=== PATIENT | male | born 1950 | race Caucasian/White ===

== ENCOUNTER 2019-07-29 22:37 | Inpatient (IN) | payer OTHER, BC ==
[~2019-07-29] VITALS: Ht 172.7 cm; Wt 80.0 kg
[2019-07-30 00:22] LABS: INR 1.7; PROTIME 17.9 Seconds (9.3-11.4)
[2019-07-30 00:39] LABS: TSH 2.174 uIU/mL (0.358-3.740)
[2019-07-30] MEDS ORDERED: PROTONIX40 M4 PO (05:00)
[2019-07-30] MEDS ORDERED: CLONAZEPAM 0.50.5 M1 PO (05:01)
[2019-07-30] MEDS ORDERED: COUMADIN 5 MG TA5 M1 PO (05:02)
[2019-07-30] MEDS ORDERED: COUMADIN 2 MG TA2 M1 PO (05:02)
[2019-07-30] MEDS ORDERED: MIDODRINE HCL 55 M1 PO (05:03)
[2019-07-30] MEDS ORDERED: LATUDA120 MG PO (05:04)
[2019-07-30] MEDS ORDERED: DIVALPROEX SOD500 M1 PO (05:04)
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
[2019-07-30 11:17] VITALS: BP 157/91
--- NOTE | 2019-07-30 11:42 | NUR ---
0649 REPORT RECEIVED FROM OVERNIGHT SHIFT, PATIENT A NEW ADMIT HERE FOR IMPULSE CONTROL. PATIENT HAS NOT BEEN TAKING MEDICATION LIKE HE IS SUPPOSE TO. PATIENT HAS A HX OF SI/HI 3 YEARS AGO, PATIENT LIVES WITH 96 YEAR OLD MOTHER AT HOME. PATIENT ATE BREAKFAST TOOK MEDICATION WITHOUT INCIDENCE COOPERATIVE, CALM DENIES SI/HI AT PRESENT. WILL CONTINUE TO MONITOR PATIENT FOR SAFETY AND BEHAVIORS.
--- NOTE | 2019-07-30 13:12 | EKG ---
[address] [place] [address] ELECTROCARDIOGRAM REPORT Name: DEVIN STINSON Room #: 520A-A ADM IN M.R.#: [id number] Admission: 07/29/19 Attend Phys: Lico Quintanilla DO Discharge: Date of : 52 Report #: [id number] THIS REPORT FOR: //name// [facility] Test Date: 2019-07-30 Test Time: 10:04:53 Pat Name: DEVIN STINSON Department: Room: 520A A Gender: M [employer]ombstone Erector: Ayaan BOOKER : 1950 Requested By: Lico Quintanilla Order Number: [id number] MD: Hiro Yoon Measurements Intervals [place] Rate: 92 P: 61 IL: 125 QRS: 58 QRSD: 100 T: 54 QT: 353 QTc: 437 Interpretive Statements Sinus rhythm Ventricular premature complex Minimal ST depression, inferior leads Compared to ECG 09/18/2001 16:36:34 Ventricular premature complex(es) now present ST (T wave) deviation now present Electronically Signed On 07-30-2019 13:11:57 PHOTOGRAPHER LITHOGRAPHIC by Hiro Yoon [email or web address] <ELECTRONICALLY SIGNED> By: Hiro Yoon MD, [facility] 07/30/19 1311 1004 1004 Hiro Yoon MD, [facility] /EPI
[2019-07-30 15:07] VITALS: BP 152/91
[2019-07-30 19:53] VITALS: BP 135/67
--- NOTE | 2019-07-31 01:48 | NUR ---
[facility] HE DOES HAVE A ROOM MATE. PATIENT IS A/O X 1-2. PATIENT PLEASANT AND COOPERATIVE BUT IS IMPULSIVE WHEN HE GETS A THOUGHT. PATIENT HAS BEEN IN ROOM AND/OR BED ALL NIGHT. DENIES PAIN. PATIENT AMBULATES ON HIS OWN AND IS STEADY ON HIS FEET. BED IN LOW POSITON AND BED ALARM ON. WILL CONTINUE TO MONITOR.
[2019-07-31 06:23] LABS: PROTIME 28.9 Seconds (9.3-11.4)
[2019-07-31 06:47] LABS: INR 2.8
[2019-07-31 08:00] VITALS: BP 129/64
--- NOTE | 2019-07-31 08:00 | NUR ---
PT UP AD EDIL TODAY. PT ATE BREAKFAST AND BACK TO BED. PT DENIES ANY PAIN. PT HAS TREMORS TO RT HAND. PT WANTING TO GET CLEANED UP AFTER BREAKFAST. PT WEAR BRIEF FOR STRESS INCON. PT DENIES ANY PAIN. GOAL TO SHAVE AND CLIP FINGER NAILS TODAY. WANTING TO GO HOME TOMMORROW.
[2019-07-31 08:58] VITALS: BP 139/64
[2019-07-31 12:35] VITALS: BP 119/76
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
[2019-07-31 19:17] VITALS: BP 107/59
--- NOTE | 2019-08-01 03:44 | NUR ---
TOOK OVER CARE OF THIS PATIENT AT 1920. PATIENT ALERT AND OIENTED X4. REMAINED IN BED DURING SHIFT. TOOK MEDS WITH NO PROBLEM. NO SIGNS OF AGGRESSION. SLEPT MOST OF NIGHT. NO PAIN NOTED.
[2019-08-01 06:39] LABS: INR 3.3; PROTIME 33.7 Seconds (9.3-11.4)
[2019-08-01 08:40] VITALS: BP 100/64
--- NOTE | 2019-08-01 12:49 | NUR ---
ASSUMED CARE AT 0700 THIS MORNING. PT. IS SITTING IN A CHAIR IN THE DINING ROOM. HE HAS BEEN DEPRESSED LOOKING, BUT HAS BEEN PLEASANT AND COOPERATIVE WITH THIS SUPERVISORY FORESTER. HE TOOK HIS MEDICATIONS WITHOUT PROBLEMS NOTED. ANSWERED ALL QUESTIONS APPROPRIATELY.
[2019-08-01 12:53] VITALS: BP 100/64
[2019-08-01 19:45] VITALS: BP 137/82
--- NOTE | 2019-08-02 03:54 | NUR ---
ASSUMED CARE OF PATIENT ON 08/01/19 AT APPROXIMATELY 1915. UPON ONE TO ONE WITH PATIENT HE WAS IN BED WITH EYES CLOSED THAT OPENED SPONTANEOUSLY TO THIS NURSES VOICE. HE APPEARS WITH A EUTHYMIC AFFECT, TANGENTIAL THOUGHTS, BUT WAS COOPERATIVE WITH THIS NURSE. HE DID TALK IN A NON SENSICAL MANNER THROUGHOUT THE ASSESSMENT. HE WAS ABLE TO DENY SI HI AND HALLUCINATIONS. HE DENIED MEDICAL CONCERNS WITH NO S/S OF DISTRESS. NURSING WILL MAINTAIN ALL PRECAUTIONS FOR SAFETY AT ALL TIMES.
[2019-08-02 06:10] LABS: INR 2.2; PROTIME 22.9 Seconds (9.3-11.4)
[2019-08-02 10:26] VITALS: BP 127/62
--- NOTE | 2019-08-02 15:15 | NUR ---
Rebecca called and spoke with pt's mother and she stated that the pt had called her already today and reported that he would be home on Monday. 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 Dr carpio later reported that this pt is going to need transportation home and that [facility] might be able to help with that too. D/C is set for 11:30 am. This was reported to nursing.
[2019-08-02 19:58] VITALS: BP 113/62
--- NOTE | 2019-08-03 03:49 | NUR ---
ASSUMED CARE ON 08/02/19 AT 1915. UPON ONE TO ONE WITH PATIENT HE APPEARS WITH A EUTHYMIC AFFECT, AND DRESSED NEATLY. HE CONVERSED WITH THIS NURSE POLITELY MADE NO PHYSICAL COMPLAINTS, DID NOT REPORT FEELING DEPRESSED NOR ANXIOUS, HE DENIED SI HI AND HALLUCINATIONS. HE HAD LIMITED INTERACTIONS WITH OTHER PATIENTS, AGREEABLE TO TAKE MEDICATIONS WITH NO ISSUES. HE DENIED MEDICAL CONCERNS WITH NO S/S OF DISTRESS. NURSING WILL MAINTAIN ALL PRECAUTIONS TO ENSURE SAFETY AT ALL TIMES.
[2019-08-03 04:34] LABS: INR 1.6; PROTIME 16.8 Seconds (9.3-11.4)
[2019-08-03 07:15] VITALS: BP 137/68
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
--- NOTE | 2019-08-03 15:45 | NUR ---
COOPERATIVE AND PLEASANT UPON APPROACH. TALKATIVE AND PLEASANT STATING HE FEELS "A LOT BETTER" AFTER SPEAKING WITH HIS MOTHER ON PHONE AND APPRECIATIVE OF STAFF ASSISITNG HIM DENIES PAIN/DISCOMFORT. DID STAY OUT OF ROOM FOR AM YOGA ACTIVITY BUT REFUSED PM SESSION C/O TREMOR. NO NOTED OR REPORTED PSYCHOSIS/AGITATION. DENIES SI/SH/HI. STATES "I MADE A STUPID COMMENT BECAUSE I GOT MAD" GAIT STEADY WITHOUT ASSISITVE DEVICES.
--- NOTE | 2019-08-03 17:06 | NUR ---
Date of Admission: 07/29/19 Date of Activity Therapy Assessment:07/31/2019 Activity Goal: One group per day Initial Goal:Pt to attend at least one RT group per day to aid in the development of positive coping skills. Weekly progress towards goal: On track when groups offered Group participation level: Moderate Behaviors observed: Pt has been withdrawn from peers. Pt spoke about poor boundaries during assessment but hasn't shown poor boundaries while here. Pt is quiet and reserved. Pt enjoys talking 1:1. Plan: No change towards goal
[2019-08-03 21:15] VITALS: BP 132/70
--- NOTE | 2019-08-04 03:38 | NUR ---
ASSUMED CARE ON 08/03/2019 AT 1915, PATIENT IS ALERT AND ORIENTED X2-3, HE IS CALM AND COOPERATIVE, EASILY FOLLOWS DIRECTION AND APPEARS WITH A EUTYHMIC AFFECT. HE IS MEDICATION COMPLIANT, DENIES FEELINGS OF DEPRESSION ANXIETY AND SI HI AND HALLUCINATIONS. HE DENIES MEDICAL CONCERNS WITH NO S/S OF DISTRESS. NURSING WILL MAINTAIN ALL PRECAUTIONS TO ENSURE SAFETY AT ALL TIMES.
[2019-08-04 05:49] LABS: INR 1.3; PROTIME 12.9 Seconds (9.3-11.4)
[2019-08-04 08:43] VITALS: BP 132/70
[2019-08-04 09:10] VITALS: BP 143/71
[2019-08-04] MEDS ORDERED: CLONAZEPAM 0.50.5 M1 PO (09:57)
[2019-08-04] MEDS ORDERED: DEPAKOTE ER250 MG PO (09:58)
[2019-08-04] MEDS ORDERED: BENZTROPINE MES1 MG PO (09:59)
[2019-08-04] MEDS ORDERED: TRAZODONE HCL100 MG PO (09:59)
[2019-08-04] MEDS ORDERED: LATANOPROST2.5 ML OPHTHALMIC (10:00)
[2019-08-04] MEDS ORDERED: BRIMONIDINE TART5 ML OPHTHALMIC (10:00)
[2019-08-04 10:29] VITALS: BP 143/71
--- NOTE | 2019-08-04 10:40 | NUR ---
0700 Care RESUMMED FROM OVERNIGHT SHIFT, PATIENT IN DAY ROOM ATE BREAKFAST, TOOK MEDICATION WITHOUT INCIDENCE. PATIENT PARTICIPATED IN GROUPS, PATIENT DOES NOT INTERACT WITH OTHER PATIENTS. PATIENT QUIET COOPERATIVE WILL CONTINUE TO MONITOR FOR SAFETY AND BEHAVIORS.
--- NOTE | 2019-08-04 11:00 | NUR ---
SW contacted Leslie Huma and left a message for her asking her to return SW phone call. SW team will continue to follow pt during his stay on this unit.
[2019-08-04 19:48] VITALS: BP 152/90
--- NOTE | 2019-08-05 01:18 | NUR ---
PATIENT CAME OUT OF HIS ROOM AROUND 1930 AND HE SPOKE WITH THIS NURSE. HE WAS HAPPY AND EXCITED TO GO HOME TOMORROW. HE SAYS HE CAN'T WAIT TO GET BACK TO WORK. HE STATES HIS TREMORS IN HIS HANDS HAVE BEEN SO MUCH BETTER TODAY AND ARE HARDLY NOTICEABLE. PATIENT WENT BACK TO HIS ROOM. HIS PHYSICAL ASSESSMENT WNL. HE DENIES SI/HI AND HALLUCINATIONS. HE LET THIS NURSE KNOW THAT HE IS GOING HOME AT 1130 AM AND WILL STILL BE LIVING WITH HIS MOTHER. PATIENT IS SLEEPING AT THIS TIME. HIS BED IS IN LOW POSITION AND BED ALARM IS ON. PATIENT DENIES PAIN. HE TOOK HIS MEDS WHOLE. WILL CONTINUE TO MONITOR.
[2019-08-05 06:35] LABS: INR 1.4; PROTIME 14.1 Seconds (9.3-11.4)
[2019-08-05 08:00] VITALS: BP 115/77
--- NOTE | 2019-08-05 08:00 | NUR ---
PT UP AD EDIL THIS AM, SLIGHT TREMORS TO HANDS. PT ALERT AND ORIENTED. PT KNOWS ABOUT DISCHARGE TODAY. PT STATED HE THANKS US FOR BEING NICE TO HIM. PT DIDN'T UNDERSTAND WHY HE DID WHAT HE DID. HE STATED HE COULDN'T READ OR WRITE, BUT IS IN A CLASS TO LEARN AND HE IS GOING TO GET BACK INTO IT AGAIN.
--- NOTE | 2019-08-05 08:19 | NUR ---
PT TOOK MEDS WHOLE WITHOUT ANY ISSUES.
[2019-08-05 08:58] VITALS: BP 115/77
--- NOTE | 2019-08-05 11:34 | NUR ---
JUSTINO D/C Note JUSTINO contacted pt's wrapper caser Leslie Finn. No answer. JUSTINO left ms. JUSTINO contacted yellow cab and asked for a cab for pt. JUSTINO gave voucher to pt's nurse for trip. JUSTINO provided pt with an update No other needs for SW team to address at this time.
--- NOTE | 2019-08-05 12:00 | NUR ---
PT VERBALY UNDERSTOOD D/C ORDERS. ASSISTED PT WITH READING DISCHARGE TO HIM. TOLD PT HE NEEDS TO TAKE HIS AFTERNOON MEDS AND BEDTIME. PT LEFT WITH ASSISTANCE OF STAFF WALKING TO CAB. PT HAS SEAT BELT ON IN CAB. PT THANKED US AGAIN FOR HIS CARE.
--- NOTE | 2019-08-08 11:15 | D ---
[facility] [place] [address] DISCHARGE SUMMARY Name: DEVIN STINSON Room #: 526A-A DIS IN M.R.#: [id number] Admission: 07/29/19 Attend Phys: Lico Quintanilla DO Discharge: 08/05/19 Date of : 52 Report #: [id number] THIS REPORT FOR: //name// CC: Lico Quintanilla FAM physician/PCP DATE OF SERVICE: 08/05/2019 INPATIENT PSYCHIATRIC DISCHARGE SUMMARY ATTENDING PHYSICIAN: Lico Quintanilla DO. FIRE AND SAFETY HELPER: Katie Contreras M.D. DISCHARGE DIAGNOSES: As follows, schizophrenia, suspect mild cognitive impairment. The patient declines neuropsych testing. History of deep venous thrombosis, on warfarin and mood disorder. The patient is discharging to a private residence in [place] where he lives with his mother who is his caregiver. The patient is advised to use caution while driving, daylight and only familiar areas. The patient's psychiatric care is at [facility] where he sees October. DISCHARGE MEDICATIONS: Clonazepam 0.5 mg p.o. at 10:15 and 2100, Depakote ER 750 mg p.o. b.i.d. for mood stabilization, trazodone 100 mg p.o. at bedtime p.r.n., Cogentin 0.5 mg p.o. b.i.d. for tremor; brimonidine tartrate to the eyes 5 mL drop each eye at night; latanoprost 2.5 mL drops, one each at night; Protonix 40 mg p.o. daily, warfarin 10 mg p.o. daily, midodrine 5 mg p.o. t.i.d., trazodone 120 mg p.o. daily at 1700. LABORATORY DATA: From this admission are as follows: INR level is 1.4 on 08/05/2019. The patient had skipped a dose few days back so was not higher. PT was 14.1. Laboratories this admission are mainly coags, TSH 2.174, which is normal. Depakote level 92 on August 03, which is desirable. REASON FOR ADMISSION: Initially referred by [facility], presented with his 92-year-old mother. His mother called police due to threatening statements made towards her and believes he needed a medication change. HOSPITAL COURSE: The patient was admitted to Geriatric Psychiatry Unit. The patient made threatening statements regarding a health social work professor and nurse practitioner at [facility]. I informed the nurse practitioner. The patient also was handled by the same nurse practitioner this past weekend. He claimed he did not recognize her. Regarding medication, the patient responded well to Depakote in therapeutic environment. He was educated [address] [address] DISCHARGE SUMMARY Name: DEVIN STINSONN Room #: 526A-A [facility] IN M.R.#: [id number] Admission: 07/29/19 Attend Phys: Lico Quintanilla DO Discharge: 08/05/19 Date of : 52 Report #: [id number] on controlling his behaviors. Overall, the patient improved. There was no discharge day mental status examination as this author had jury duty. . Temperature 36.6, pulse 72, respirations 15, BP 159/77. PROGNOSIS: Guarded given limited social support and advancing age. He is full code. <ELECTRONICALLY SIGNED> By: Lico Quintanilla DO 08/08/19 1115 0037 0139 Lico Quintanilla DO /nt
== END 2019-08-05 12:06 | disposition home or self-care (01) | DRG 885 ==
LOC: SBH
PROVIDERS: Nurse Practitioner; ADMIT Psychiatry & Neurology Psychiatry
DX: F20.9 Schizophrenia, unspecified (principal); I69.354 Hemiplegia and hemiparesis following cerebral infarction affecting left non-dominant side; F63.9 Impulse disorder, unspecified; F39 Unspecified mood [affective] disorder; F41.9 Anxiety disorder, unspecified; I25.10 Atherosclerotic heart disease of native coronary artery without angina pectoris; F43.10 Post-traumatic stress disorder, unspecified; R25.1 Tremor, unspecified; K21.9 Gastro-esophageal reflux disease without esophagitis; Z86.718 Personal history of other venous thrombosis and embolism; Z90.49 Acquired absence of other specified parts of digestive tract; Z95.828 Presence of other vascular implants and grafts; Z82.49 Family history of ischemic heart disease and other diseases of the circulatory system; Z82.3 Family history of stroke; Z95.5 Presence of coronary angioplasty implant and graft; Z88.0 Allergy status to penicillin; Z88.2 Allergy status to sulfonamides
CPT/HCPCS: 10880